=== PATIENT | male | born 1940 | race Caucasian/White ===

== ENCOUNTER 2023-11-11 07:34 | Emergency (ER) | payer MEDICARE, OTHER, SELFPAY ==
[2023-11-11] VITALS (7 sets, daily range): BP systolic 126–141; BP diastolic 74–84; BMI 23.4
[2023-11-11 07:55] LABS: % Basophils 0.2 % (0-2); % Immature Granulocytes 0.4 % (0-0.5); % Lymphocytes 30.8 % (20.5-51.1); % Monocytes 12.8 % (1.7-9.3); % Neutrophils 54.8 % (42.2-75.2); Absolute Eosinophils 0.1 10^3/uL (0-0.7); Absolute Lymphocytes 1.6 10^3/uL (1.2-3.4); Absolute Monocytes 0.7 10^3/uL (0.1-0.6); Absolute Neutrophils 2.8 10^3/uL (1.4-6.5); Hematocrit 40.1 % (39.0-52.0); Hemoglobin 13.9 g/dL (13.0-18.0); Mean Corp Hgb Conc. 34.7 g/dL (33.0-37.0); Mean Corpuscular Hgb 30.1 pg (27.0-31.0); Mean Corpuscular Volume 86.8 fL (80.0-94.0); Mean Platelet Volume 9.5 fL (7.4-10.4); Nucleated Red Blood Cells % 0 % (-); Platelet Count 230 10^3/uL (130-400); Red Blood Cell Count 4.62 10^6/uL (4.70-6.10); Red Cell Dist. Width 13.4 % (11.5-14.5); White Blood Cell Count 5.1 10^3/uL (4.8-10.8)
[2023-11-11 08:05] LABS: ALT (SGPT) 24 U/L (0-50); AST (SGOT) 27 U/L (17-59); Albumin 4.5 g/dl (3.5-5.0); Alkaline Phosphatase 76 U/L (38-126); Blood Urea Nitrogen 18 mg/dl (9-20); Calcium 9.3 mg/dl (8.4-10.2); Carbon Dioxide 20 mmol/L (22-30); Chloride 108 mmol/L (98-107); Estimated Creatinine Clearance 53 ml/min; Glucose 149 mg/dl (70-99); Potassium 3.8 mmol/L (3.5-5.1); Sodium 140 mmol/L (135-145); Total Bilirubin 0.4 mg/dl (0.2-1.3); Total Protein 6.7 g/dl (6.3-8.2); eGFR > 60.00
--- NOTE | 2023-11-11 08:08 | ED.GENMED ---
History of Present Illness
<Darcy Reese DIESEL FITTER MECHANIC - Last Filed: 11/12/23 06:54>
General
Chief Complaint: Seizure
Source: patient
Exam Limitations: none
Time Seen by Provider: 11/11/23 08:05
Nursing documentation reviewed up to this point in time: agreed with
History of Present Illness
History of Present Illness:
83-year-old male with history of seizures, SVT, CVA, GERD, prostate cancer with prostatectomy 2013, ICH with craniotomy 2016 presents via EMS for reported seizure. Pt remembers getting up a 6:30 this a.m. heard daughter in the shower so he went
downstairs to bathroom, urinated, went to kitchen to heat up coffee, felt a 'buzzing in my head,' felt lightheaded and sat down...next memory is being on the EMS stretcher wheeling out his door. He denies headache, neck pain, denies change in
vision, weakness, numbness, tingling in extremities. Denies CP, SOB, abd pain. Denies n/v/d/c. Feels 'a little tired.' Last seizure was 05/2022, was seen here, Lamictal was increased to 200 mg BID at that time. Pt takes his medication religiously.
8:40 a.m. Pt alert. Daughter and arrived. [facility] Neurologist Dr. Davis wants pt to have EEG after next seizure.
Daughter did hear a thud, found pt on kitchen floor, witnessed a seizure lasting approx 2 minutes.
Past History
<Darcy Reese, DIES[employer]TER MECHANIC - Last Filed: 11/12/23 06:54>
Past History
ED Past Medical History: Arrthythmia (Atrial fibrillation) and Other (Intracerebral bleed w craniotomy 2017)
ED Past Surgical History: Brain (Craniotomy 2017 [place])
Social History
Tobacco: Non-smoker
Alcohol: None
Personal:
Living: with family
Review of Systems
<Darcy Reese, DIESEL [employer]TER MECHANIC - Last Filed: 11/12/23 06:54>
Review of Systems
Allergies reviewed?: Yes
All Other Systems: ROS reviewed and negative except as documented in HPI and ROS
Constitutional: Reports fatigue; Denies fever
EENT: Reports other (small abrasion right side tongue)
Respiratory: Denies trouble breathing
Cardiac: Denies chest pain
ABD/GI: Denies abdominal pain, nausea, vomiting or diarrhea
: Denies dysuria, frequency, incontinence or difficulty voiding
Musculoskeletal: Denies neck pain or back pain
Skin: Reports no symptoms
Neurological: Reports no symptoms
Phy Exam
<Darcy Reese, DIESEL [employer]TER MECHANIC - Last Filed: 11/12/23 06:54>
Physical Exam
Physical Exam:
GENERAL: No acute distress. A&Ox3.
CONSTITUTIONAL: Afebrile.
EYES: PERRL, conjunctivae normal
Neck: Supple
ENMT: moist mucus membranes, Pharynx nl, small abrasion right side tongue. TMs normal
RESPIRATORY: Regular respirations, nonlabored, lungs clear.
CARDIOVASCULAR: Regular rate and rhythm, no murmurs, no rubs.
GI: Soft, nontender, normal BS
MUSCULOSKELETAL: No spinal bony tenderness. Minimal left neck ST tenderness 'from the collar.' Axial load neg. Moving all extremities well. Moves with ease. Well perfused. No edema
SKIN: Warm, dry, pink
PSYCH: Normal mood and affect. Well kept, interactive and appropriate
NEUROLOGIC: Awake, alert and oriented. Speech clear, strength equal throughout, CN 2-12 intact. No focal neurological deficits. No seizure activity
Course
<Darcy Reese, DIESEL [employer]TER MECHANIC - Last Filed: 11/12/23 06:54>
Orders/Labs/Results
Orders:
Orders
11/11/23 07:41
Electrocardiogram (*1) Urgent
Reason for Study: Other
Other Reason for Exam: Seizure
11/11/23 07:42
EKG- Treatment ONCE
11/11/23 07:45
CMP [Comprehensive Metabolic Panel] Urgent
Complete Blood Count/With Diff Urgent
11/11/23 08:20
Lamotrigine [Lamictal] 200 mg PO NOW STA
11/11/23 08:21
CT Head W/o Iv Contrast Urgent
Comment:
Reason For Exam: seizure, hx seizures, hx ICH 2017 w craniotomy
11/11/23 11:15
Lamotrigine [Lamictal] 50 mg PO NOW STA
Abnormal Lab Results
11/11/23
07:45
RBC 4.62 L 10^6/uL
(4.70-6.10)
Absolute Monos (auto) 0.7 H 10^3/uL
(0.1-0.6)
Monocytes % 12.8 H %
(1.7-9.3)
Chloride 108 H mmol/L
(98-107)
Carbon Dioxide 20 L mmol/L
(22-30)
Glucose 149 H mg/dl
(70-99)
11/11/23 07:45
11/11/23 07:45
Vital Signs
Initial and Last Documented VS:
Initial Vital Signs
BP
139/84
11/11/23 07:37
Last Documented Vital Signs
Temp Pulse Resp BP Pulse Ox
97.7 F 86 15 126/77 95
11/11/23 07:38 11/11/23 11:00 11/11/23 11:00 11/11/23 11:00 11/11/23 11:00
<Austin Nair, DO - Last Filed: 11/11/23 08:40>
Orders/Labs/Results
Orders:
Orders
11/11/23 07:41
Electrocardiogram (*1) Urgent
Reason for Study: Other
Other Reason for Exam: Seizure
11/11/23 07:42
EKG- Treatment ONCE
11/11/23 07:45
CMP [Comprehensive Metabolic Panel] Urgent
Complete Blood Count/With Diff Urgent
11/11/23 08:20
Lamotrigine [Lamictal] 200 mg PO NOW STA
11/11/23 08:21
CT Head W/o Iv Contrast Urgent
Comment:
Reason For Exam: seizure, hx seizures, hx ICH 2017 w craniotomy
11/11/23 11:15
Lamotrigine [Lamictal] 50 mg PO NOW STA
Abnormal Lab Results
11/11/23
07:45
RBC 4.62 L 10^6/uL
(4.70-6.10)
Absolute Monos (auto) 0.7 H 10^3/uL
(0.1-0.6)
Monocytes % 12.8 H %
(1.7-9.3)
Chloride 108 H mmol/L
(98-107)
Carbon Dioxide 20 L mmol/L
(22-30)
Glucose 149 H mg/dl
(70-99)
11/11/23 07:45
11/11/23 07:45
Vital Signs
Initial and Last Documented VS:
Initial Vital Signs
BP
139/84
11/11/23 07:37
Last Documented Vital Signs
Temp Pulse Resp BP Pulse Ox
97.7 F 86 15 126/77 95
11/11/23 07:38 11/11/23 11:00 11/11/23 11:00 11/11/23 11:00 11/11/23 11:00
<Darcy Reese, DIESEL [employer]TER MECHANIC - Last Filed: 11/12/23 06:54>
MDM/Problems Addressed
Differential Diagnosis Includes:
breakthrough seizure, brain bleed
MDM/Problems Addressed:
83-year-old male with history of seizures, SVT, CVA, GERD, prostate cancer with prostatectomy 2013, ICH with craniotomy 2016 presents via EMS for reported seizure. Pt remembers getting up a 6:30 this a.m. heard daughter in the shower so he went
downstairs to bathroom, urinated, went to kitchen to heat up coffee, felt a 'buzzing in my head,' felt lightheaded and sat down...next memory is being on the EMS stretcher wheeling out his door. He denies headache, neck pain, denies change in
vision, weakness, numbness, tingling in extremities. Denies CP, SOB, abd pain. Denies n/v/d/c. Feels 'a little tired.' Last seizure was 05/2022, was seen here, Lamictal was increased to 200 mg BID at that time. Pt takes his medication religiously.
8:40 a.m. Pt alert. Daughter and arrived. [facility] Neurologist Dr. Davis wants pt to have EEG after next seizure.
Daughter did witness a seizure lasting approx 2 minutes.
Pt given a.m. dose of Lamictal
CBC, CMP unremarkable
EKG NSR
Head CT: Nothing acute
9:00 a.m.
Consulted pt Neurologist Dr. Rucker at [place], awaiting call back
Family at bedside, pt totally alert
10:45 AM:
Multiple unsuccessful attempts via phone, leaving messages to reach anybody from neurology at [place].
contacted the office of different neurologist Megan Huerta, awaiting callback.
11:[address] Rucker who requests increasing Lamotrigine from 200 BID to 250 BID. He will have staff reach out to pt. for close follow up appt.
Lamotrigine does not come in 50 mg, only comes in 25 mg's so pt and family instructed on taking one of the 200 mg tabs (they have 'plenty') and 2 of the 25 mg tabs BID.
Rx sent to pt pharmacy
Family and pt comfortable going home
Chronic conditions affecting care: HTN and Neurological disorder (seizures)
<Darcy Reese, DIESEL FITTER MECHANIC - Last Filed: 11/12/23 06:54>
*Critical Care Note
Total Time (30-74mins, 75-104mins- exclusive of procedures): Not Applicable
ED Attending Note
<Darcy Reese DIESEL FITTER MECHANIC - Last Filed: 11/12/23 06:54>
-
Portions of this chart may have been created with voice recognition software.� Occasional wrong word or��sound alike� substitutions may have occurred due to the inherent limitations of voice recognition software.
<Austin Nair DO - Last Filed: 11/11/23 08:40>
ED Attending Note
Patient seen and examined by attending physician: Yes
I performed the substantive portion of visit, reviewed & personally made and approve the management plan that is documented in note by myself or DAWN.: Yes
ED Attending Note:
Seen briefly with DIESEL FITTER MECHANIC, seizure disorder question seizure on Lamictal followed [facility] history of spontaneous brain bleed,
Discharge Plan
Departure
Patient Disposition: Home (Routine Discharge)
Date of Disposition: 11/11/23
Time of Disposition: 11:10
Patient with high blood pressure during this ER visit?: No
Condition: Good
Discharge Problem:
Breakthrough seizure
Instructions: Seizures, Adult (DC)
Prescriptions:
New
lamotrigine 25 mg tablet
50 mg PO BID Qty: 60 0RF
Rx Instructions:
Take Lamotrigine 50 mg along with your 200 mg for total of 250 mg BID
No Action
calcium carbonate 500 MG tablet
500 mg PO DAILY
verapamil 240 MG capsule,ext rel. pellets 24 hr
240 mg PO DAILY
cholecalciferol (vitamin D3) [Vitamin D3] 1,000 UNIT capsule
1,000 unit PO DAILY
levetiracetam 500 MG tablet
500 mg PO BID Qty: 60 5RF
lamotrigine [Subvenite] 150 MG tablet
150 mg PO BID Qty: 28 0RF
Rx Instructions:
150mg twice a day.
lamotrigine 100 mg tablet
100 mg PO HS Qty: 60 0RF
lamotrigine 100 mg tablet
200 mg PO HS Qty: 60 1RF
Referrals:
Oriana Abbott MD [Family Provider] -
Activity Restrictions/Additional Instructions:
As we discussed, Dr. Rucker wants you to increase your Lamotrigine to 250 mg twice a day.
He will have someone from his office reach out to you for a close follow-up visit.
Interventions
Interventions:
*Risk Screen - Suicide Last Done: 11/11/23 07:52
*General Assessment Last Done: 11/11/23 07:52
*Neglect/Abuse Screening Last Done: 11/11/23 07:52
*ED COVID-19 Vaccine History Last Done: 11/11/23 07:38
*Nursing Disposition Last Done: 11/11/23 11:45
ED- Cardiac Assessment Last Done: 11/11/23 07:49
ED- Neurological Assessment Last Done: 11/11/23 07:49
ED- Pulmonary Assessment Last Done: 11/11/23 07:49
Discharge Date and Time
Discharge Date/Time: 11/11/23 12:11
Print Language: CROATIAN
[2023-11-11] MEDS: LAMICTAL 200 MG PO (08:40)
[2023-11-11] MEDS: LAMICTAL 50 MG PO (11:31)
== END 2023-11-11 12:11 | disposition home or self-care (01) ==
LOC: EMR 07:34
PROVIDERS: Emergency Medicine; EMERGENCY PHYSICIAN Emergency Medicine; FAMILY PHYSICIAN Internal Medicine
DX: G40.909 Epilepsy, unspecified, not intractable, without status epilepticus (principal); W19.XXXA Unspecified fall, initial encounter; I47.10 Supraventricular tachycardia, unspecified; K21.9 Gastro-esophageal reflux disease without esophagitis; K57.90 Diverticulosis of intestine, part unspecified, without perforation or abscess without bleeding; M81.0 Age-related osteoporosis without current pathological fracture; Z86.73 Personal history of transient ischemic attack (TIA), and cerebral infarction without residual deficits; Z85.46 Personal history of malignant neoplasm of prostate; Z90.79 Acquired absence of other genital organ(s); Z91.040 Latex allergy status
CPT/HCPCS: 99285; 70450; 80053; 85025; 93005